=== PATIENT | male | born 1995 | race Caucasian/White ===

== ENCOUNTER 2018-03-04 05:19 | Emergency (ER) | payer SELFPAY ==
[2018-03-04] MEDS ORDERED: LORAZEPAM INJ 2 MG/1 ML VIAL ONE (06:01)
[2018-03-04] MEDS ORDERED: HALOPERIDOL LACTATE INJ 5 MG/1 ML VIAL ONE (06:01)
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
[2018-03-04 06:31] LABS: ABSOLUTE EOSINOPHILS # (AUTO) 0.1 10^3/uL (0.0-0.6); ABSOLUTE LYMPHOCYTES (AUTO) 2.7 10^3/uL (0.5-4.7); ABSOLUTE MONOCYTES (AUTO) 0.8 10^3/uL (0.1-1.4); ABSOLUTE NEUT (AUTO) 5.7 10^3/uL (1.7-8.2); BASOPHILS % (AUTO) 0.4 % (0-2); EOSINOPHILS % (AUTO) 1.1 % (0-6); HEMATOCRIT 48.9 % (37.9-51.0); HEMOGLOBIN 17.2 g/dL (13.5-17.0); LYMPHOCYTES % (AUTO) 28.9 % (13-45); MEAN CORPUSCULAR HEMOGLOBIN 31.3 pg (27.0-33.4); MEAN CORPUSCULAR HGB CONC 35.1 g/dL (32.0-36.0); MEAN CORPUSCULAR VOLUME 89 fl (80-97); MONOCYTES % (AUTO) 8.9 % (3-13); PLATELET COUNT 181 10^3/uL (150-450); RED BLOOD COUNT 5.49 10^6/uL (4.35-5.55); RED CELL DISTRIBUTION WIDTH 13.3 % (11.5-14.0); SEGMENTED NEUTROPHILS % (AUTO) 60.7 % (42-78); TOTAL CELLS COUNTED % (AUTO) 100 %; WHITE BLOOD COUNT 9.3 10^3/uL (4.0-10.5)
[2018-03-04] MEDS ORDERED: LORAZEPAM INJ 2 MG/1 ML VIAL IV ONE (06:33)
[2018-03-04] MEDS ORDERED: HALOPERIDOL LACTATE INJ 5 MG/1 ML VIAL IV ONE (06:33)
[2018-03-04 06:42] LABS: APPEARANCE,URINE CLEAR; BILIRUBIN,URINE NEGATIVE (NEGATIVE); COLOR,URINE STRAW; GLUCOSE, URINE NEGATIVE (NEGATIVE); KETONES,URINE NEGATIVE (NEGATIVE); LEUKOCYTE ESTERASE,URINE NEGATIVE (NEGATIVE); NITRITE,URINE NEGATIVE (NEGATIVE); PROTEIN,URINE NEGATIVE (NEGATIVE); URINE SPECIFIC GRAVITY 1.004; UROBILINOGEN,URINE NEGATIVE mg/dL (<2.0)
[2018-03-04 06:50] LABS: URINE AMPHETAMINES SCREEN NEGATIVE; URINE BARBITURATES SCREEN NEGATIVE; URINE BENZODIAZEPINES SCREEN NEGATIVE; URINE COCAINE SCREEN NEGATIVE; URINE MARIJUANA (THC) SCREEN UNCONFIRMED POSITIVE; URINE METHADONE SCREEN NEGATIVE; URINE PHENCYCLIDINE SCREEN NEGATIVE
[2018-03-04 07:01] LABS: ALANINE AMINOTRANSFERASE 32 U/L (21-72); ALBUMIN 4.7 g/dL (3.5-5.0); ALKALINE PHOSPHATASE 83 U/L (38-126); ANION GAP 19 (5-19); ASPARTATE AMINO TRANSFERASE 26 U/L (17-59); BILIRUBIN,DIRECT 0.3 mg/dL (0.0-0.4); BILIRUBIN,TOTAL 1.6 mg/dL (0.2-1.3); BLOOD UREA NITROGEN 13 mg/dL (7-20); CALCIUM 10.4 mg/dL (8.4-10.2); CARBON DIOXIDE 20 mmol/L (22-30); CHLORIDE 106 mmol/L (98-107); CREATINE KINASE 213 U/L (55-170); GLUCOSE 89 mg/dL (75-110); POTASSIUM 3.7 mmol/L (3.6-5.0); TOTAL PROTEIN 8.2 g/dL (6.3-8.2)
[2018-03-04 07:10] LABS: ALCOHOL < 10 mg/dL (NONE DETECTED); SALICYLATE < 1.0 mg/dL (2.0-20.0)
--- NOTE | 2018-03-04 07:12 | RADIOLOGY REPORT (SQ) ---
EXAM DESCRIPTION: CT HEAD WITHOUT IV CONTRAST COMPLETED DATE/TME: 03/04/2018 06:28 CLINICAL HISTORY: 22 years, Male, Altered mental status COMPARISON: None. TECHNIQUE: Axial CT images of the brain were obtained without contrast. Sagittal and coronal reformats were performed. [facility] [id number] Images stored on PACS. All CT scanners at this facility use dose modulation, iterative reconstruction, and/or weight based dosing when appropriate to reduce radiation dose to as low as reasonably achievable (ALARA). [facility]: Dose Right [facility]: CareDose [facility]: Dose Right [facility]: Teradose 4D [facility]: [employer] LIMITATIONS: None. FINDINGS: There is no acute infarct, hemorrhage, mass, edema, hydrocephalus, or extra-axial fluid collection. The paranasal sinuses and mastoid air cells are clear. There is no acute fracture IMPRESSION: No acute intracranial abnormality TECHNICAL DOCUMENTATION: Quality ID # 436: Final reports with documentation of one or more dose reduction techniques (e.g., Automated exposure control, adjustment of the mA and/or kV according to patient size, use of iterative reconstruction technique) 2010 [email or web address]- All Rights Reserved
[2018-03-04 07:27] LABS: ACETAMINOPHEN < 10 ug/mL (10-30)
--- NOTE | 2018-03-04 09:22 | EKG REPORT ---
SEVERITY:- NORMAL ECG - SINUS RHYTHM : Confirmed by: Darwin Camargo 04-Mar-2018 09:22:11
[2018-03-04] MEDS ORDERED: ACETAMINOPHEN 325 MG TABLET PO ONE (09:41)
[2018-03-04 11:30] VITALS: BP 118/61
== END 2018-03-04 11:47 | disposition home or self-care (01) ==
LOC: ER 05:19
DX: F19.10 Other psychoactive substance abuse, uncomplicated (principal); F25.9 Schizoaffective disorder, unspecified
CPT/HCPCS: 93005; 99285; 96374; 96375; 36415; 80307 ×4; 82550; 85025; 80053; 81001; 70450; 93010; J1630; J2060

== ENCOUNTER 2018-03-05 07:24 | Inpatient (IN) | payer OTHER ==
--- NOTE | 2018-03-05 07:38 | ER Document Report ---
ED Psych Disorder / Suicide - General Chief Complaint: Psych Problem Stated Complaint: ALTERED MENTAL STATUS Time Seen by Provider: 03/05/18 07:36 TRAVEL OUTSIDE OF THE U.S. IN LAST 30 DAYS: No - Related Data Allergies/Adverse Reactions: No Known Allergies Allergy (Verified 03/04/18 08:25) Past Medical History - Social History Family History: None Renal/ Medical History: Denies: Hx Peritoneal Dialysis Physical Exam - Vital signs Vitals: Temp Pulse Resp BP Pulse Ox 98.8 F 105 H 16 138/75 H 99 03/05/18 07:30 03/05/18 07:30 03/05/18 07:30 03/05/18 07:30 03/05/18 07:30 Course - Vital Signs Vital signs: Temp Pulse Resp BP Pulse Ox 98.8 F 105 H 16 138/75 H 99 03/05/18 07:30 03/05/18 07:30 03/05/18 07:30 03/05/18 07:30 03/05/18 07:30
[2018-03-05] MEDS ORDERED: HALOPERIDOL LACTATE INJ 5 MG/1 ML VIAL IV ONE (07:56)
[2018-03-05] MEDS ORDERED: LORAZEPAM INJ 2 MG/1 ML VIAL IV ONE (07:56)
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
[2018-03-05 08:59] LABS: ABSOLUTE EOSINOPHILS # (AUTO) 0.1 10^3/uL (0.0-0.6); ABSOLUTE LYMPHOCYTES (AUTO) 1.8 10^3/uL (0.5-4.7); ABSOLUTE MONOCYTES (AUTO) 0.7 10^3/uL (0.1-1.4); ABSOLUTE NEUT (AUTO) 7.3 10^3/uL (1.7-8.2); BASOPHILS % (AUTO) 0.5 % (0-2); EOSINOPHILS % (AUTO) 0.6 % (0-6); HEMATOCRIT 48.9 % (37.9-51.0); LYMPHOCYTES % (AUTO) 17.9 % (13-45); MEAN CORPUSCULAR HEMOGLOBIN 31.6 pg (27.0-33.4); MEAN CORPUSCULAR HGB CONC 34.9 g/dL (32.0-36.0); MEAN CORPUSCULAR VOLUME 91 fl (80-97); MONOCYTES % (AUTO) 7.2 % (3-13); PLATELET COUNT 197 10^3/uL (150-450); RED CELL DISTRIBUTION WIDTH 13.1 % (11.5-14.0); SEGMENTED NEUTROPHILS % (AUTO) 73.8 % (42-78); TOTAL CELLS COUNTED % (AUTO) 100 %; WHITE BLOOD COUNT 9.9 10^3/uL (4.0-10.5)
[2018-03-05 09:17] LABS: ALANINE AMINOTRANSFERASE 29 U/L (21-72); ALBUMIN 5.1 g/dL (3.5-5.0); ALKALINE PHOSPHATASE 70 U/L (38-126); ANION GAP 13 (5-19); ASPARTATE AMINO TRANSFERASE 28 U/L (17-59); BILIRUBIN,DIRECT 0.3 mg/dL (0.0-0.4); BILIRUBIN,TOTAL 1.5 mg/dL (0.2-1.3); BLOOD UREA NITROGEN 14 mg/dL (7-20); CALCIUM 10.1 mg/dL (8.4-10.2); CARBON DIOXIDE 27 mmol/L (22-30); CHLORIDE 104 mmol/L (98-107); GLUCOSE 94 mg/dL (75-110); POTASSIUM 3.9 mmol/L (3.6-5.0); SODIUM 144.1 mmol/L (137-145); TOTAL PROTEIN 8.3 g/dL (6.3-8.2)
[2018-03-05 09:18] LABS: ACETAMINOPHEN < 10 ug/mL (10-30); ALCOHOL < 10 mg/dL (NONE DETECTED); SALICYLATE < 1.0 mg/dL (2.0-20.0)
[2018-03-05 09:19] LABS: APPEARANCE,URINE CLEAR; BILIRUBIN,URINE NEGATIVE (NEGATIVE); COLOR,URINE STRAW; GLUCOSE, URINE NEGATIVE (NEGATIVE); KETONES,URINE NEGATIVE (NEGATIVE); LEUKOCYTE ESTERASE,URINE NEGATIVE (NEGATIVE); NITRITE,URINE NEGATIVE (NEGATIVE); PROTEIN,URINE NEGATIVE (NEGATIVE); URINE SPECIFIC GRAVITY 1.004; UROBILINOGEN,URINE NEGATIVE mg/dL (<2.0)
[2018-03-05 09:34] LABS: URINE AMPHETAMINES SCREEN NEGATIVE; URINE BARBITURATES SCREEN NEGATIVE; URINE BENZODIAZEPINES SCREEN NEGATIVE; URINE COCAINE SCREEN NEGATIVE; URINE MARIJUANA (THC) SCREEN NEGATIVE; URINE METHADONE SCREEN NEGATIVE; URINE PHENCYCLIDINE SCREEN NEGATIVE
[2018-03-05 09:41] LABS: ERYTHROCYTE SEDIMENTATION RATE 10 mm/hr (0-15)
--- NOTE | 2018-03-05 09:54 | RADIOLOGY REPORT (SQ) ---
EXAM DESCRIPTION: CT HEAD WITHOUT COMPLETED DATE/TIME: 03/05/2018 9:44 am REASON FOR STUDY: AMS COMPARISON: 03/04/2018. TECHNIQUE: Axial images acquired through the brain without intravenous contrast. Images reviewed wi th bone, brain and subdural windows. Additional sagittal and coronal reconstructions were generated. Images stored on PACS. All CT scanners at this facility use dose modulation, iterative reconstruction, and/or weight based d osing when appropriate to reduce radiation dose to as low as reasonably achievable (ALARA). [facility]: Dose Right [facility]: CareDose [facility]: Dose Right [facility]: Teradose 4D [facility]: [employer] RADIATION DOSE: CT Rad equipment meets quality standard of care and radiation dose reduction techniq ues were employed. CTDIvol: 53.2 mGy. DLP: 1017 mGy-cm. mGy. LIMITATIONS: None. FINDINGS: VENTRICLES: Normal size and contour. CEREBRUM: No masses. No hemorrhage. No midline shift. No evidence for acute infarction. Normal gra y/white matter differentiation. No areas of low density in the white matter. CEREBELLUM: No masses. No hemorrhage. No alteration of density. No evidence for acute infarction. EXTRAAXIAL SPACES: No fluid collections. No masses. ORBITS AND GLOBE: No intra- or extraconal masses. Normal contour of globe without masses. CALVARIUM: No fracture. PARANASAL SINUSES: No fluid or mucosal thickening. SOFT TISSUES: No mass or hematoma. OTHER: No other significant finding. IMPRESSION: NORMAL BRAIN CT WITHOUT CONTRAST. EVIDENCE OF ACUTE STROKE: NO. COMMENT: Quality ID # 436: Final reports with documentation of one or more dose reduction techniques (e.g., Automated exposure control, adjustment of the mA and/or kV according to patient size, use of iterative reconstruction technique) TECHNICAL DOCUMENTATION: JOB ID: [id number] [employer]- All Rights Reserved Reading location - IP/workstation name: [email or web address]
[2018-03-05] MEDS ORDERED: BENZTROPINE MESYLATE 1 MG TABLET PO ONE (11:09)
[2018-03-05] MEDS ORDERED: KETAMINE HCL INJ 500 MG/10 ML VIAL IV ONE ×2 (11:16→13:46)
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
[2018-03-05] MEDS ORDERED: VANCOMYCIN HCL INJ 1000 MG VIAL IV ONE (16:08)
[2018-03-05] MEDS ORDERED: CEFTRIAXONE INJ 1000 MG VIAL IV ONE (16:08)
--- NOTE | 2018-03-05 16:17 | ER Document Report ---
Doctor's Note Notes: 03/05/18 16:16 The lab was called and there were gram-positive cocci in pairs in the CSF. This not a lot of polys present. The question is is this skin contaminant versus real bacterial infection with the wait for the culture. The lumbar puncture was done very aseptically. However he was moving. Though a full ChloraPrep was done and the area was cleaned. Patient was given Rocephin and vancomycin of talk to the hospitalist for admission.
[2018-03-05] MEDS ORDERED: VANCOMYCIN HCL 0 MG in DEXTROSE 5%-WATER 250 ML IV NR (16:30)
[2018-03-05] MEDS ORDERED: ACETAMINOPHEN 325 MG TABLET PO ONE (16:51)
[2018-03-05] MEDS ORDERED: ONDANSETRON 4 MG TAB.RAPDIS PO PRN (17:50)
[2018-03-05] MEDS ORDERED: HALOPERIDOL 2 MG TABLET PO PRN (17:57)
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
[2018-03-05] MEDS: CEFEPIME 2 GM/D5W RTU 2 GM/50 ML RTUPB IV SCH (18:39)
[2018-03-05] MEDS: ENOXAPARIN SODIUM INJ 40 MG/0.4 ML DISP.SYRIN SUBCUT SCH (21:10)
[2018-03-05] MEDS: ONDANSETRON HCL INJ/PF 4 MG/2 ML SDV IV PRN (21:23)
--- NOTE | 2018-03-05 21:45 | EKG REPORT ---
SEVERITY:- NORMAL ECG - SINUS RHYTHM : Confirmed by: Darwin Camargo 05-Mar-2018 21:45:25
[2018-03-05] MEDS: VANCOMYCIN HCL 1,000 MG in DEXTROSE 5%-WATER 250 ML IV SCH (23:04)
[2018-03-06] MEDS ORDERED: DEXAMETHASONE SOD PHOS INJ 10 MG/1 ML VIAL IV ONE ×2 (01:00→13:00)
[2018-03-06] MEDS: ONDANSETRON HCL INJ/PF 4 MG/2 ML SDV IV PRN ×4 (03:18→22:03)
[2018-03-06] MEDS: HALOPERIDOL LACTATE INJ 5 MG/1 ML VIAL IV PRN ×3 (03:18→22:03)
[2018-03-06] MEDS: CEFEPIME 2 GM/D5W RTU 2 GM/50 ML RTUPB IV SCH (05:13)
[2018-03-06 06:00] LABS: ABSOLUTE LYMPHOCYTES (AUTO) 0.9 10^3/uL (0.5-4.7); ABSOLUTE MONOCYTES (AUTO) 0.7 10^3/uL (0.1-1.4); BASOPHILS % (AUTO) 0.1 % (0-2); EOSINOPHILS % (AUTO) 0.1 % (0-6); HEMATOCRIT 44.6 % (37.9-51.0); HEMOGLOBIN 15.4 g/dL (13.5-17.0); MEAN CORPUSCULAR HEMOGLOBIN 31.4 pg (27.0-33.4); MEAN CORPUSCULAR HGB CONC 34.6 g/dL (32.0-36.0); MEAN CORPUSCULAR VOLUME 91 fl (80-97); MONOCYTES % (AUTO) 5.8 % (3-13); PLATELET COUNT 176 10^3/uL (150-450); RED BLOOD COUNT 4.91 10^6/uL (4.35-5.55); RED CELL DISTRIBUTION WIDTH 13.1 % (11.5-14.0); TOTAL CELLS COUNTED % (AUTO) 100 %; WHITE BLOOD COUNT 11.6 10^3/uL (4.0-10.5)
[2018-03-06 07:20] LABS: ALANINE AMINOTRANSFERASE 28 U/L (21-72); ALBUMIN 4.2 g/dL (3.5-5.0); ALKALINE PHOSPHATASE 53 U/L (38-126); ANION GAP 14 (5-19); ASPARTATE AMINO TRANSFERASE 17 U/L (17-59); BILIRUBIN,DIRECT 0.2 mg/dL (0.0-0.4); BILIRUBIN,TOTAL 1.7 mg/dL (0.2-1.3); BLOOD UREA NITROGEN 13 mg/dL (7-20); CALCIUM 9.6 mg/dL (8.4-10.2); CARBON DIOXIDE 22 mmol/L (22-30); CHLORIDE 107 mmol/L (98-107); GLUCOSE 94 mg/dL (75-110); PHOSPHORUS 4.4 mg/dL (2.5-4.5); POTASSIUM 4.6 mmol/L (3.6-5.0); SODIUM 143.2 mmol/L (137-145)
[2018-03-06] MEDS: VANCOMYCIN HCL 1,000 MG in DEXTROSE 5%-WATER 250 ML IV SCH ×2 (10:46→21:11)
[2018-03-06] MEDS: ENOXAPARIN SODIUM INJ 40 MG/0.4 ML DISP.SYRIN SUBCUT SCH (10:46)
[2018-03-06] MEDS ORDERED: KETOROLAC TROMETHAMINE INJ/PF 30 MG/1 ML SDV IV ONE (12:30)
[2018-03-06] MEDS ORDERED: CEFTRIAXONE INJ 1000 MG VIAL IV SCH (12:30)
--- NOTE | 2018-03-06 12:54 | RADIOLOGY REPORT (SQ) ---
EXAM DESCRIPTION: CT HEAD WITHOUT COMPLETED DATE/TIME: 03/06/2018 12:43 pm REASON FOR STUDY: meningitis COMPARISON: 03/05/2018 TECHNIQUE: Axial images acquired through the brain without intravenous contrast. Images reviewed wi th bone, brain and subdural windows. Additional sagittal and coronal reconstructions were generated. Images stored on PACS. All CT scanners at this facility use dose modulation, iterative reconstruction, and/or weight based d osing when appropriate to reduce radiation dose to as low as reasonably achievable (ALARA). [facility]: Dose Right [facility]: CareDose [facility]: Dose Right [facility]: Teradose 4D [facility]: Smart Lumate RADIATION DOSE: CT Rad equipment meets quality standard of care and radiation dose reduction techniq ues were employed. CTDIvol: 48.6 mGy. DLP: 953 mGy-cm. mGy. LIMITATIONS: None. FINDINGS: VENTRICLES: Normal size and contour. CEREBRUM: No masses. No hemorrhage. No midline shift. No evidence for acute infarction. Normal gra y/white matter differentiation. No areas of low density in the white matter. CEREBELLUM: No masses. No hemorrhage. No alteration of density. No evidence for acute infarction. EXTRAAXIAL SPACES: No fluid collections. No masses. ORBITS AND GLOBE: No intra- or extraconal masses. Normal contour of globe without masses. CALVARIUM: No fracture. PARANASAL SINUSES: No fluid or mucosal thickening. SOFT TISSUES: No mass or hematoma. OTHER: No other significant finding. IMPRESSION: NORMAL BRAIN CT WITHOUT CONTRAST. EVIDENCE OF ACUTE STROKE: NO. COMMENT: Quality ID # [id number]: Final reports with documentation of one or more dose reduction techniques (e.g., Automated exposure control, adjustment of the mA and/or kV according to patient size, use of iterative reconstruction technique) TECHNICAL DOCUMENTATION: JOB ID: [id number] [employer]- All Rights Reserved Reading location - IP/workstation name: [email or web address]
[2018-03-06] MEDS: CEFTRIAXONE 2 GM/D5W RTU 2 GM/50 ML RTUPB IV SCH (14:26)
[2018-03-06] MEDS: NORMAL SALINE 1000 ML 1,000 ML IV PRN (14:27)
[2018-03-06] MEDS: DEXAMETHASONE SOD PHOS INJ 10 MG/1 ML VIAL IV SCH ×2 (17:39→23:23)
--- NOTE | 2018-03-06 19:04 | PDOC PROGRESS REPORT ---
Subjective Progress Note for:: 03/06/18 Subjective:: 22 years old white male with history of drug abuse who presented due to alteration in mental status and CSF was positive for gram-positive cocci in pairs patient is lethargic and confused and complained of severe headache and vomited once when I examined him in the room. Reason For Visit: POSITIVE CSF CULTURE,ENCEPHALOPATHY Physical Exam Vital Signs: Temp Pulse Resp BP Pulse Ox 98.0 F 55 L 18 110/61 100 03/06/18 16:00 03/06/18 18:40 03/06/18 16:00 03/06/18 16:00 03/06/18 16:00 Intake & Output 03/05/18 03/06/18 03/07/18 06:59 06:59 06:59 Intake Total 100 50 Balance 100 50 Exam: Patient is lethargic and confused Anxious and complains of headache Head atraumatic normocephalic Pupils are equal reactive Regular rate and rhythm Lungs clear no distress Abdomen nontender nondistended No appreciable meningismus Results Laboratory Results: 03/06/18 05:23 03/06/18 06:50 03/06/18 03/06/18 03/06/18 05:23 05:23 06:50 WBC 11.6 H RBC 4.91 Hgb 15.4 Hct 44.6 MCV 91 MCH 31.4 MCHC 34.6 RDW 13.1 Plt Count 176 Seg Neutrophils % 86.0 H Lymphocytes % 8.0 L Monocytes % 5.8 Eosinophils % 0.1 Basophils % 0.1 Absolute Neutrophils 10.0 H Absolute Lymphocytes 0.9 Absolute Monocytes 0.7 Absolute Eosinophils 0.0 Absolute Basophils 0.0 Sodium Cancelled 143.2 Potassium Cancelled 4.6 Chloride Cancelled 107 Carbon Dioxide Cancelled 22 Anion Gap Cancelled 14 BUN Cancelled 13 Creatinine Cancelled 0.72 Est GFR ( Amer) Cancelled > 60 Est GFR (Non-Af Amer) Cancelled > 60 Glucose Cancelled 94 Calcium Cancelled 9.6 Phosphorus Cancelled 4.4 Magnesium Cancelled 2.1 Total Bilirubin Cancelled 1.7 H AST Cancelled 17 ALT Cancelled 28 Alkaline Phosphatase Cancelled 53 Total Protein Cancelled 7.0 Albumin Cancelled 4.2 Impressions: Head CT 03/06/18 12:08 IMPRESSION: NORMAL BRAIN CT WITHOUT CONTRAST. EVIDENCE OF ACUTE STROKE: NO. Assessment & Plan - Diagnosis (1) Acute bacterial meningitis Is this a current diagnosis for this admission?: Yes Plan: I called [facility] and discussed the case with hospitalist, studio sales associate and the neurologist for possible transfer to higher level of care as there was concern about this patient long-term prognosis The neurologist recommended observation for today and continuing current management that includes IV vancomycin, IV ceftriaxone and adding IV ampicillin as well as continuing IV dexamethasone and IV fluids The patient does not turn around by tomorrow they will accept him for transfer (2) Acute encephalopathy Is this a current diagnosis for this admission?: Yes Plan: Due to meningitis (3) Polysubstance abuse Is this a current diagnosis for this admission?: Yes (4) Positive culture finding Is this a current diagnosis for this admission?: Yes
[2018-03-06] MEDS ORDERED: AMPICILLIN SOD INJ 2 GM VIAL IV SCH (21:00)
[2018-03-06] MEDS: AMPICILLIN SODIUM 2 GM in NORMAL SALINE 100 ML IV SCH ×2 (21:04→23:24)
[2018-03-06] MEDS: ACETAMINOPHEN 325 MG TABLET PO PRN (21:10)
[2018-03-07] MEDS: CEFTRIAXONE 2 GM/D5W RTU 2 GM/50 ML RTUPB IV SCH ×2 (02:09→14:21)
[2018-03-07] MEDS: AMPICILLIN SODIUM 2 GM in NORMAL SALINE 100 ML IV SCH ×5 (03:12→22:52)
[2018-03-07 05:07] LABS: HEMATOCRIT 42.3 % (37.9-51.0); HEMOGLOBIN 14.7 g/dL (13.5-17.0); MEAN CORPUSCULAR HEMOGLOBIN 31.1 pg (27.0-33.4); MEAN CORPUSCULAR HGB CONC 34.8 g/dL (32.0-36.0); MEAN CORPUSCULAR VOLUME 89 fl (80-97); PLATELET COUNT 160 10^3/uL (150-450); RED BLOOD COUNT 4.73 10^6/uL (4.35-5.55); WHITE BLOOD COUNT 12.1 10^3/uL (4.0-10.5)
[2018-03-07 05:28] LABS: ALANINE AMINOTRANSFERASE 27 U/L (21-72); ALBUMIN 4.3 g/dL (3.5-5.0); ALKALINE PHOSPHATASE 52 U/L (38-126); ANION GAP 15 (5-19); ASPARTATE AMINO TRANSFERASE 15 U/L (17-59); BILIRUBIN,DIRECT 0.4 mg/dL (0.0-0.4); BILIRUBIN,TOTAL 1.1 mg/dL (0.2-1.3); BLOOD UREA NITROGEN 14 mg/dL (7-20); CALCIUM 9.5 mg/dL (8.4-10.2); CARBON DIOXIDE 22 mmol/L (22-30); CHLORIDE 105 mmol/L (98-107); GLUCOSE 126 mg/dL (75-110); PHOSPHORUS 3.8 mg/dL (2.5-4.5); POTASSIUM 4.4 mmol/L (3.6-5.0); SODIUM 142.3 mmol/L (137-145); TOTAL PROTEIN 6.9 g/dL (6.3-8.2)
[2018-03-07 05:32] LABS: ABSOLUTE LYMPHOCYTES# (MANUAL) 0.5 10^3/uL (0.5-4.7); ABSOLUTE MONOCYTES # (MANUAL) 0.4 10^3/uL (0.1-1.4); ABSOLUTE NEUTROPHILS# (MANUAL) 11.3 10^3/uL (1.7-8.2); BASOPHILS % (MANUAL) 0 % (0-2); EOSINOPHILS % (MANUAL) 0 % (0-6); LYMPHOCYTES % (MANUAL) 4 % (13-45); MONOCYTES % (MANUAL) 3 % (3-13); SEGMENTED NEUTROPHILS % (MAN) 93 % (42-78); TOTAL CELLS COUNTED 100
[2018-03-07 05:33] LABS: PLATELET COMMENT ADEQUATE; RBC MORPHOLOGY COMMENT NORMO-CYTIC/CHROMIC
[2018-03-07] MEDS: NORMAL SALINE 1000 ML 1,000 ML IV PRN ×2 (05:50→18:16)
[2018-03-07] MEDS: DEXAMETHASONE SOD PHOS INJ 10 MG/1 ML VIAL IV SCH ×3 (05:57→18:15)
[2018-03-07] MEDS: ENOXAPARIN SODIUM INJ 40 MG/0.4 ML DISP.SYRIN SUBCUT SCH (09:11)
[2018-03-07] MEDS: ONDANSETRON HCL INJ/PF 4 MG/2 ML SDV IV PRN ×2 (09:56→15:35)
[2018-03-07] MEDS: ACETAMINOPHEN 325 MG TABLET PO PRN ×2 (10:01→20:19)
[2018-03-07] MEDS: VANCOMYCIN HCL 1,000 MG in DEXTROSE 5%-WATER 250 ML IV SCH (10:03)
[2018-03-07 10:40] LABS: VANCOMYCIN,TROUGH 5.3 ug/mL (5.0-20.0)
[2018-03-07] MEDS: VANCOMYCIN HCL 750 MG in DEXTROSE 5%-WATER 250 ML IV SCH ×2 (12:22→18:14)
[2018-03-07] MEDS: KETOROLAC TROMETHAMINE INJ/PF 30 MG/1 ML SDV IV PRN ×2 (13:18→22:51)
[2018-03-07] MEDS: HALOPERIDOL LACTATE INJ 5 MG/1 ML VIAL IV PRN (14:44)
[2018-03-07] MEDS: ONDANSETRON 4 MG TAB.RAPDIS PO PRN ×2 (14:45→20:39)
--- NOTE | 2018-03-07 15:22 | PDOC PROGRESS REPORT ---
Subjective Progress Note for:: 03/07/18 Subjective:: 22 years old white male with history of drug abuse who presented due to alteration in mental status and CSF was positive for gram-positive cocci in pairs. He is better today after we started IV fluids and dexamethasone. Reason For Visit: POSITIVE CSF CULTURE,ENCEPHALOPATHY Physical Exam Vital Signs: Temp Pulse Resp BP Pulse Ox 98.5 F 88 16 112/57 L 100 03/07/18 11:15 03/07/18 12:00 03/07/18 12:00 03/07/18 12:00 03/07/18 12:00 Intake & Output 03/06/18 03/07/18 03/08/18 06:59 06:59 06:59 Intake Total 100 1900 568 Balance 100 1900 568 Weight 116 lb 9.992 oz General appearance: PRESENT: no acute distress Head exam: PRESENT: atraumatic Eye exam: ABSENT: conjunctival injection Ear exam: ABSENT: bleeding, drainage Throat exam: PRESENT: post pharyngeal erythema Neck exam: ABSENT: JVD, meningismus, tenderness, thyromegaly Respiratory exam: PRESENT: clear to auscultation sanjeev. ABSENT: crackles, rales, rhonchi Cardiovascular exam: PRESENT: RRR. ABSENT: diastolic murmur, systolic murmur Pulses: PRESENT: normal dorsalis pedis pul GI/Abdominal exam: PRESENT: normal bowel sounds, soft. ABSENT: distended, guarding, mass, organolmegaly, rebound, tenderness Musculoskeletal exam: ABSENT: deformity, tenderness Neurological exam: PRESENT: oriented to person, oriented to place, oriented to time, oriented to situation, CN II-XII grossly intact Psychiatric exam: PRESENT: anxious Results Laboratory Results: 03/07/18 04:45 03/07/18 04:45 03/07/18 03/07/18 04:45 04:45 WBC 12.1 H RBC 4.73 Hgb 14.7 Hct 42.3 MCV 89 MCH 31.1 MCHC 34.8 RDW 13.0 Plt Count 160 Seg Neutrophils % Not Reportable Lymphocytes % Not Reportable Monocytes % Not Reportable Eosinophils % Not Reportable Basophils % Not Reportable Absolute Neutrophils Not Reportable Absolute Lymphocytes Not Reportable Absolute Monocytes Not Reportable Absolute Eosinophils Not Reportable Absolute Basophils Not Reportable Sodium 142.3 Potassium 4.4 Chloride 105 Carbon Dioxide 22 Anion Gap 15 BUN 14 Creatinine 0.66 Est GFR ( Amer) > 60 Est GFR (Non-Af Amer) > 60 Glucose 126 H Calcium 9.5 Phosphorus 3.8 Magnesium 1.9 Total Bilirubin 1.1 AST 15 L ALT 27 Alkaline Phosphatase 52 Total Protein 6.9 Albumin 4.3 Impressions: Head CT 03/06/18 12:08 IMPRESSION: NORMAL BRAIN CT WITHOUT CONTRAST. EVIDENCE OF ACUTE STROKE: NO. Assessment & Plan - Diagnosis (1) Acute bacterial meningitis Is this a current diagnosis for this admission?: Yes Plan: Yesterday: I called [facility] and discussed the case with hospitalist, baggage porter and the neurologist for possible transfer to higher level of care as there was concern about this patient long-term prognosis The neurologist recommended observation for the day and continuing current management that includes IV vancomycin, IV ceftriaxone and adding IV ampicillin as well as continuing IV dexamethasone and IV fluids The patient does not turn around by tomorrow they will accept him for transfer Today I see some improvement in the patient's condition and we will hold transfer for now and continue current management (2) Acute encephalopathy Is this a current diagnosis for this admission?: Yes Plan: Due to meningitis Improvement (3) Polysubstance abuse Is this a current diagnosis for this admission?: Yes (4) Positive culture finding Is this a current diagnosis for this admission?: Yes
[2018-03-08] MEDS: DEXAMETHASONE SOD PHOS INJ 10 MG/1 ML VIAL IV SCH ×4 (01:00→17:21)
[2018-03-08] MEDS: VANCOMYCIN HCL 750 MG in DEXTROSE 5%-WATER 250 ML IV SCH ×4 (01:01→17:21)
[2018-03-08] MEDS: ACETAMINOPHEN 325 MG TABLET PO PRN ×2 (01:02→05:58)
[2018-03-08] MEDS: ONDANSETRON HCL INJ/PF 4 MG/2 ML SDV IV PRN ×3 (01:15→22:46)
[2018-03-08] MEDS: AMPICILLIN SODIUM 2 GM in NORMAL SALINE 100 ML IV SCH ×6 (02:28→21:23)
[2018-03-08] MEDS: CEFTRIAXONE 2 GM/D5W RTU 2 GM/50 ML RTUPB IV SCH ×2 (04:33→14:20)
[2018-03-08 06:09] LABS: HEMATOCRIT 41.9 % (37.9-51.0); HEMOGLOBIN 14.7 g/dL (13.5-17.0); MEAN CORPUSCULAR HEMOGLOBIN 31.2 pg (27.0-33.4); MEAN CORPUSCULAR HGB CONC 35.1 g/dL (32.0-36.0); MEAN CORPUSCULAR VOLUME 89 fl (80-97); PLATELET COUNT 155 10^3/uL (150-450); RED BLOOD COUNT 4.72 10^6/uL (4.35-5.55); RED CELL DISTRIBUTION WIDTH 13.1 % (11.5-14.0)
[2018-03-08 06:17] LABS: ALANINE AMINOTRANSFERASE 24 U/L (21-72); ALKALINE PHOSPHATASE 53 U/L (38-126); ANION GAP 13 (5-19); ASPARTATE AMINO TRANSFERASE 16 U/L (17-59); BILIRUBIN,DIRECT 0.3 mg/dL (0.0-0.4); BILIRUBIN,TOTAL 0.8 mg/dL (0.2-1.3); BLOOD UREA NITROGEN 11 mg/dL (7-20); CALCIUM 9.4 mg/dL (8.4-10.2); CARBON DIOXIDE 26 mmol/L (22-30); CHLORIDE 104 mmol/L (98-107); GLUCOSE 133 mg/dL (75-110); PHOSPHORUS 3.3 mg/dL (2.5-4.5); SODIUM 143.3 mmol/L (137-145); TOTAL PROTEIN 6.7 g/dL (6.3-8.2)
[2018-03-08 06:24] LABS: VANCOMYCIN,TROUGH 14.2 ug/mL (5.0-20.0)
[2018-03-08 07:40] LABS: ABSOLUTE LYMPHOCYTES# (MANUAL) 0.5 10^3/uL (0.5-4.7); ABSOLUTE MONOCYTES # (MANUAL) 0.8 10^3/uL (0.1-1.4); ABSOLUTE NEUTROPHILS# (MANUAL) 13.8 10^3/uL (1.7-8.2); BAND NEUTROPHILS % (MANUAL) 1 % (3-5); BASOPHILS % (MANUAL) 0 % (0-2); EOSINOPHILS % (MANUAL) 0 % (0-6); LYMPHOCYTES % (MANUAL) 3 % (13-45); MONOCYTES % (MANUAL) 5 % (3-13); SEGMENTED NEUTROPHILS % (MAN) 91 % (42-78); TOTAL CELLS COUNTED 100
[2018-03-08 07:42] LABS: TOXIC VACUOLATION PRESENT
[2018-03-08 07:43] LABS: PLATELET COMMENT ADEQUATE
[2018-03-08] MEDS: ENOXAPARIN SODIUM INJ 40 MG/0.4 ML DISP.SYRIN SUBCUT SCH (11:04)
[2018-03-08] MEDS: KETOROLAC TROMETHAMINE INJ/PF 30 MG/1 ML SDV IV PRN (12:06)
[2018-03-08] MEDS: HALOPERIDOL LACTATE INJ 5 MG/1 ML VIAL IV PRN (12:07)
[2018-03-08] MEDS ORDERED: CHLORPROMAZINE HCL INJ 25 MG/1 ML AMPULE IV PRN (13:09)
--- NOTE | 2018-03-08 13:30 | PDOC PROGRESS REPORT ---
Subjective Progress Note for:: 03/08/18 Subjective:: 22 years old white male with history of drug abuse who presented due to alteration in mental status and CSF was positive for gram-positive cocci in pairs. c/o headache oriented apparently was using LSD, marijuana, meth, heavy alcohol x 8 years!! CSF cx so far negative after 3 days Reason For Visit: POSITIVE CSF CULTURE,ENCEPHALOPATHY Physical Exam Vital Signs: Temp Pulse Resp BP Pulse Ox 97.3 F 72 12 121/68 94 03/08/18 07:28 03/08/18 07:28 03/08/18 07:28 03/08/18 07:28 03/08/18 07:28 Intake & Output 03/07/18 03/08/18 03/09/18 06:59 06:59 06:59 Intake Total 1900 2636 250 Balance 1900 2636 250 Weight 116 lb 9.992 oz 149 lb 4.047 oz General appearance: PRESENT: no acute distress Eye exam: PRESENT: PERRLA. ABSENT: conjunctival injection, periorbital swelling , scleral icterus Ear exam: ABSENT: bleeding, drainage Mouth exam: PRESENT: tongue midline. ABSENT: neck supple Throat exam: ABSENT: post pharyngeal erythema Neck exam: ABSENT: JVD, meningismus, tenderness, thyromegaly Respiratory exam: PRESENT: clear to auscultation sanjeev. ABSENT: accessory muscle use Cardiovascular exam: PRESENT: RRR. ABSENT: diastolic murmur, rubs, systolic murmur Pulses: PRESENT: normal dorsalis pedis pul Vascular exam: PRESENT: normal capillary refill GI/Abdominal exam: PRESENT: normal bowel sounds, soft. ABSENT: distended, guarding, mass, organolmegaly, rebound, tenderness Neurological exam: PRESENT: alert, awake, oriented to person, oriented to place , oriented to time, oriented to situation. ABSENT: aphasic Results Laboratory Results: 03/08/18 05:39 03/08/18 05:39 03/08/18 03/08/18 05:39 05:39 WBC 15.0 H RBC 4.72 Hgb 14.7 Hct 41.9 MCV 89 MCH 31.2 MCHC 35.1 RDW 13.1 Plt Count 155 Seg Neutrophils % Not Reportable Lymphocytes % Not Reportable Monocytes % Not Reportable Eosinophils % Not Reportable Basophils % Not Reportable Absolute Neutrophils Not Reportable Absolute Lymphocytes Not Reportable Absolute Monocytes Not Reportable Absolute Eosinophils Not Reportable Absolute Basophils Not Reportable Sodium 143.3 Potassium 4.0 Chloride 104 Carbon Dioxide 26 Anion Gap 13 BUN 11 Creatinine 0.73 Est GFR ( Amer) > 60 Est GFR (Non-Af Amer) > 60 Glucose 133 H Calcium 9.4 Phosphorus 3.3 Magnesium 2.2 Total Bilirubin 0.8 AST 16 L ALT 24 Alkaline Phosphatase 53 Total Protein 6.7 Albumin 4.0 Impressions: Head CT 03/06/18 12:08 IMPRESSION: NORMAL BRAIN CT WITHOUT CONTRAST. EVIDENCE OF ACUTE STROKE: NO. Assessment & Plan - Diagnosis (1) Acute bacterial meningitis Is this a current diagnosis for this admission?: Yes Plan: Patient is clinically improving Is hemodynamically stable He is oriented but still complains of headaches Extensive history of heavy substance and alcohol abuse His CSF cultures are negative for 3 days now Continue empiric antibiotics for now and steroids, we will may stop all of them tomorrow Start thiamine and folic acid supplements and scheduled Ativan High risk of alcohol withdrawal symptoms He may be withdrawing from substance abuse (2) Acute encephalopathy Is this a current diagnosis for this admission?: Yes Plan: Improvement (3) Polysubstance abuse Is this a current diagnosis for this admission?: Yes (4) Positive culture finding Is this a current diagnosis for this admission?: Yes
[2018-03-08] MEDS: LORAZEPAM 1 MG TABLET PO SCH ×2 (14:21→14:24)
[2018-03-08] MEDS: LORAZEPAM INJ 2 MG/1 ML VIAL IV SCH (15:15)
[2018-03-08] MEDS: MORPHINE SULFATE 10 MG/ML INJ IV PRN ×2 (15:15→22:46)
[2018-03-08] MEDS: THIAMINE HCL 100 MG, FOLIC ACID 1 MG in NORMAL SALINE 250 ML IV SCH (19:01)
[2018-03-08] MEDS: NORMAL SALINE 1000 ML 1,000 ML IV PRN (19:02)
[2018-03-09] MEDS: LORAZEPAM INJ 2 MG/1 ML VIAL IV SCH ×2 (00:53→07:27)
[2018-03-09] MEDS: VANCOMYCIN HCL 750 MG in DEXTROSE 5%-WATER 250 ML IV SCH ×5 (00:56→23:55)
[2018-03-09] MEDS: AMPICILLIN SODIUM 2 GM in NORMAL SALINE 100 ML IV SCH ×3 (00:56→10:22)
[2018-03-09] MEDS: DEXAMETHASONE SOD PHOS INJ 10 MG/1 ML VIAL IV SCH ×2 (01:02→05:20)
[2018-03-09] MEDS: CEFTRIAXONE 2 GM/D5W RTU 2 GM/50 ML RTUPB IV SCH ×2 (01:11→14:44)
[2018-03-09 06:03] LABS: ABSOLUTE LYMPHOCYTES (AUTO) 0.9 10^3/uL (0.5-4.7); ABSOLUTE NEUT (AUTO) 10.9 10^3/uL (1.7-8.2); BASOPHILS % (AUTO) 0.1 % (0-2); EOSINOPHILS % (AUTO) 0.2 % (0-6); HEMATOCRIT 40.7 % (37.9-51.0); HEMOGLOBIN 14.3 g/dL (13.5-17.0); LYMPHOCYTES % (AUTO) 7.3 % (13-45); MEAN CORPUSCULAR HEMOGLOBIN 31.3 pg (27.0-33.4); MEAN CORPUSCULAR VOLUME 89 fl (80-97); MONOCYTES % (AUTO) 7.6 % (3-13); PLATELET COUNT 154 10^3/uL (150-450); RED BLOOD COUNT 4.56 10^6/uL (4.35-5.55); SEGMENTED NEUTROPHILS % (AUTO) 84.8 % (42-78); TOTAL CELLS COUNTED % (AUTO) 100 %; WHITE BLOOD COUNT 12.9 10^3/uL (4.0-10.5)
[2018-03-09 06:31] LABS: ALANINE AMINOTRANSFERASE 27 U/L (21-72); ALBUMIN 3.5 g/dL (3.5-5.0); ALKALINE PHOSPHATASE 39 U/L (38-126); ANION GAP 12 (5-19); ASPARTATE AMINO TRANSFERASE 11 U/L (17-59); BILIRUBIN,DIRECT 0.2 mg/dL (0.0-0.4); BILIRUBIN,TOTAL 0.5 mg/dL (0.2-1.3); BLOOD UREA NITROGEN 10 mg/dL (7-20); CALCIUM 9.2 mg/dL (8.4-10.2); CARBON DIOXIDE 26 mmol/L (22-30); CHLORIDE 103 mmol/L (98-107); GLUCOSE 129 mg/dL (75-110); POTASSIUM 3.7 mmol/L (3.6-5.0); TOTAL PROTEIN 6.2 g/dL (6.3-8.2)
[2018-03-09] MEDS: ENOXAPARIN SODIUM INJ 40 MG/0.4 ML DISP.SYRIN SUBCUT SCH (10:50)
[2018-03-09] MEDS: KETOROLAC TROMETHAMINE INJ/PF 30 MG/1 ML SDV IV PRN (10:51)
--- NOTE | 2018-03-09 11:54 | PDOC PROGRESS REPORT ---
Subjective Progress Note for:: 03/09/18 Subjective:: 22 years old white male with history of drug abuse who presented due to alteration in mental status and CSF was positive for gram-positive cocci in pairs. still c/o headache oriented and much more awake CSF cultures are still negative Reason For Visit: POSITIVE CSF CULTURE,ENCEPHALOPATHY Physical Exam Vital Signs: Temp Pulse Resp BP Pulse Ox 97.7 F 42 L 16 122/70 100 03/09/18 07:51 03/09/18 07:51 03/09/18 07:51 03/09/18 07:51 03/09/18 07:51 Intake & Output 03/08/18 03/09/18 03/10/18 06:59 06:59 06:59 Intake Total 3686 2068 Balance 3686 2068 Weight 149 lb 4.047 oz 138 lb 10.732 oz General appearance: PRESENT: cooperative. ABSENT: no acute distress Head exam: ABSENT: atraumatic, normocephalic Eye exam: PRESENT: EOMI, PERRLA. ABSENT: conjunctival injection, nystagmus, periorbital swelling Ear exam: ABSENT: bleeding, drainage Neck exam: ABSENT: JVD, meningismus, tenderness, thyromegaly Respiratory exam: PRESENT: clear to auscultation sanjeev. ABSENT: rales, rhonchi, wheezes Pulses: PRESENT: normal dorsalis pedis pul Vascular exam: PRESENT: normal capillary refill GI/Abdominal exam: PRESENT: normal bowel sounds, soft. ABSENT: distended, guarding, mass, organolmegaly, rebound, tenderness Extremities exam: PRESENT: full ROM. ABSENT: calf tenderness, clubbing, pedal edema Neurological exam: PRESENT: alert, awake, oriented to person, oriented to place , oriented to time, oriented to situation, CN II-XII grossly intact. ABSENT: motor sensory deficit Psychiatric exam: PRESENT: anxious Results Laboratory Results: 03/09/18 05:53 03/09/18 05:53 03/09/18 03/09/18 05:53 05:53 WBC 12.9 H RBC 4.56 Hgb 14.3 Hct 40.7 MCV 89 MCH 31.3 MCHC 35.0 RDW 13.0 Plt Count 154 Seg Neutrophils % 84.8 H Lymphocytes % 7.3 L Monocytes % 7.6 Eosinophils % 0.2 Basophils % 0.1 Absolute Neutrophils 10.9 H Absolute Lymphocytes 0.9 Absolute Monocytes 1.0 Absolute Eosinophils 0.0 Absolute Basophils 0.0 Sodium 141.0 Potassium 3.7 Chloride 103 Carbon Dioxide 26 Anion Gap 12 BUN 10 Creatinine 0.72 Est GFR ( Amer) > 60 Est GFR (Non-Af Amer) > 60 Glucose 129 H Calcium 9.2 Total Bilirubin 0.5 AST 11 L ALT 27 Alkaline Phosphatase 39 Total Protein 6.2 L Albumin 3.5 Impressions: Head CT 03/06/18 12:08 IMPRESSION: NORMAL BRAIN CT WITHOUT CONTRAST. EVIDENCE OF ACUTE STROKE: NO. Assessment & Plan - Diagnosis (1) Acute bacterial meningitis Is this a current diagnosis for this admission?: Yes Plan: Patient is clinically improving Is hemodynamically stable He is oriented but still complains of headaches Extensive history of heavy substance and alcohol abuse His CSF cultures are negative up to date Continue ceftriaxone and vancomycin. Stop dexamethasone and ampicillin Continue thiamine and folic acid supplements and scheduled Ativan High risk of alcohol withdrawal symptoms He may be withdrawing from substance abuse We contacted ID service for consult waiting for callback (2) Acute encephalopathy Is this a current diagnosis for this admission?: Yes Plan: Resolved (3) Polysubstance abuse Is this a current diagnosis for this admission?: Yes (4) Positive culture finding Is this a current diagnosis for this admission?: Yes
[2018-03-09] MEDS: ONDANSETRON HCL INJ/PF 4 MG/2 ML SDV IV PRN (12:30)
[2018-03-09] MEDS: NORMAL SALINE 1000 ML 1,000 ML IV PRN (12:33)
[2018-03-09] MEDS: LORAZEPAM INJ 2 MG/1 ML VIAL IV PRN (12:34)
[2018-03-09] MEDS: ONDANSETRON 4 MG TAB.RAPDIS PO PRN (18:29)
[2018-03-09] MEDS: OXYCODONE HCL IR 5 MG TABLET PO PRN (19:58)
[2018-03-09] MEDS: THIAMINE HCL 100 MG, FOLIC ACID 1 MG in NORMAL SALINE 250 ML IV SCH (20:55)
[2018-03-10] MEDS: OXYCODONE HCL IR 5 MG TABLET PO PRN ×2 (00:49→10:12)
[2018-03-10] MEDS: LORAZEPAM INJ 2 MG/1 ML VIAL IV PRN ×3 (00:57→21:58)
[2018-03-10] MEDS: CEFTRIAXONE 2 GM/D5W RTU 2 GM/50 ML RTUPB IV SCH ×2 (01:02→14:59)
[2018-03-10] MEDS: VANCOMYCIN HCL 750 MG in DEXTROSE 5%-WATER 250 ML IV SCH ×3 (06:58→17:46)
[2018-03-10] MEDS: ONDANSETRON HCL INJ/PF 4 MG/2 ML SDV IV PRN (07:05)
[2018-03-10 09:56] LABS: ABSOLUTE LYMPHOCYTES (AUTO) 1.3 10^3/uL (0.5-4.7); ABSOLUTE NEUT (AUTO) 6.7 10^3/uL (1.7-8.2); EOSINOPHILS % (AUTO) 0.4 % (0-6); HEMATOCRIT 41.9 % (37.9-51.0); HEMOGLOBIN 14.7 g/dL (13.5-17.0); LYMPHOCYTES % (AUTO) 14.3 % (13-45); MEAN CORPUSCULAR HEMOGLOBIN 31.5 pg (27.0-33.4); MEAN CORPUSCULAR HGB CONC 35.1 g/dL (32.0-36.0); MEAN CORPUSCULAR VOLUME 90 fl (80-97); MONOCYTES % (AUTO) 11.1 % (3-13); PLATELET COUNT 156 10^3/uL (150-450); RED BLOOD COUNT 4.68 10^6/uL (4.35-5.55); RED CELL DISTRIBUTION WIDTH 13.1 % (11.5-14.0); SEGMENTED NEUTROPHILS % (AUTO) 74.2 % (42-78); TOTAL CELLS COUNTED % (AUTO) 100 %; WHITE BLOOD COUNT 9.1 10^3/uL (4.0-10.5)
[2018-03-10 10:27] LABS: ANION GAP 11 (5-19); BLOOD UREA NITROGEN 11 mg/dL (7-20); CALCIUM 9.2 mg/dL (8.4-10.2); CARBON DIOXIDE 30 mmol/L (22-30); CHLORIDE 101 mmol/L (98-107); GLUCOSE 92 mg/dL (75-110); POTASSIUM 3.2 mmol/L (3.6-5.0); SODIUM 141.5 mmol/L (137-145)
[2018-03-10] MEDS: ENOXAPARIN SODIUM INJ 40 MG/0.4 ML DISP.SYRIN SUBCUT SCH (11:30)
--- NOTE | 2018-03-10 11:58 | RADIOLOGY REPORT (SQ) ---
EXAM DESCRIPTION: CHEST 2 VIEWS COMPLETED DATE/TIME: 03/10/2018 11:46 am REASON FOR STUDY: coughing COMPARISON: None. EXAM PARAMETERS: NUMBER OF VIEWS: two views TECHNIQUE: Digital Frontal and Lateral radiographic views of the chest acquired. RADIATION DOSE: NA LIMITATIONS: none FINDINGS: LUNGS AND PLEURA: No opacities, masses or pneumothorax. No pleural effusion. MEDIASTINUM AND HILAR STRUCTURES: No masses or contour abnormalities. HEART AND VASCULAR STRUCTURES: Heart normal size. No evidence for failure. BONES: No acute findings. HARDWARE: None in the chest. OTHER: No other significant finding. IMPRESSION: NO ACUTE RADIOGRAPHIC FINDING IN THE CHEST. TECHNICAL DOCUMENTATION: JOB ID: [id number] [employer]- All Rights Reserved Reading location - IP/workstation name: [email or web address]
--- NOTE | 2018-03-10 13:32 | PDOC PROGRESS REPORT ---
Subjective Progress Note for:: 03/10/18 Subjective:: 22 years old white male with history of drug abuse who presented due to alteration in mental status and CSF was positive for gram-positive cocci in pairs. still c/o headache mantal status normal CSF cultures are still negative Reason For Visit: POSITIVE CSF CULTURE,ENCEPHALOPATHY Physical Exam Vital Signs: Temp Pulse Resp BP Pulse Ox 98.1 F 43 L 16 122/61 100 03/10/18 11:32 03/10/18 11:32 03/10/18 11:32 03/10/18 11:32 03/10/18 11:32 Intake & Output 03/09/18 03/10/18 03/11/18 06:59 06:59 06:59 Intake Total 3619 1796.2 472 Balance 3619 1796.2 472 Weight 138 lb 10.732 oz 140 lb 10.479 oz General appearance: PRESENT: cooperative. ABSENT: no acute distress Head exam: PRESENT: atraumatic, normocephalic Cardiovascular exam: PRESENT: RRR. ABSENT: diastolic murmur, rubs, systolic murmur Pulses: PRESENT: normal dorsalis pedis pul GI/Abdominal exam: PRESENT: normal bowel sounds, soft. ABSENT: distended, guarding, mass, organolmegaly, rebound, tenderness Neurological exam: PRESENT: alert, awake, oriented to person, oriented to place , oriented to time, oriented to situation, CN II-XII grossly intact. ABSENT: motor sensory deficit Results Laboratory Results: 03/10/18 09:30 03/10/18 09:30 03/10/18 03/10/18 09:30 09:30 WBC 9.1 RBC 4.68 Hgb 14.7 Hct 41.9 MCV 90 MCH 31.5 MCHC 35.1 RDW 13.1 Plt Count 156 Seg Neutrophils % 74.2 Lymphocytes % 14.3 Monocytes % 11.1 Eosinophils % 0.4 Basophils % 0.0 Absolute Neutrophils 6.7 Absolute Lymphocytes 1.3 Absolute Monocytes 1.0 Absolute Eosinophils 0.0 Absolute Basophils 0.0 Sodium 141.5 Potassium 3.2 L Chloride 101 Carbon Dioxide 30 Anion Gap 11 BUN 11 Creatinine 0.84 Est GFR ( Amer) > 60 Est GFR (Non-Af Amer) > 60 Glucose 92 Calcium 9.2 Impressions: Head CT 03/06/18 12:08 IMPRESSION: NORMAL BRAIN CT WITHOUT CONTRAST. EVIDENCE OF ACUTE STROKE: NO. Chest X-Ray 03/10/18 00:00 IMPRESSION: NO ACUTE RADIOGRAPHIC FINDING IN THE CHEST. Assessment & Plan - Diagnosis (1) Acute bacterial meningitis Is this a current diagnosis for this admission?: Yes Plan: Patient is clinically improving Is hemodynamically stable He is oriented but still complains of headaches Extensive history of heavy substance and alcohol abuse His CSF cultures are negative up to date Continue ceftriaxone and vancomycin. Stopped dexamethasone and ampicillin yesterday Continue thiamine and folic acid supplements and scheduled Ativan High risk of alcohol withdrawal symptoms He may be withdrawing from substance abuse We contacted ID service for consult yesterday, waiting for callback (2) Acute encephalopathy Is this a current diagnosis for this admission?: Yes Plan: Resolved (3) Polysubstance abuse Is this a current diagnosis for this admission?: Yes (4) Positive culture finding Is this a current diagnosis for this admission?: Yes
--- NOTE | 2018-03-10 14:02 | PSYCHOLOGICAL NOTE ---
Psych Note - Psych Note Psych Note: Reason for Consult: Altered Mental Status 22-year-old male presents to the emergency department with altered mental status. patient was seen yesterday after he wsa kicked off a plan for unruly behavior. Patient reportedly has a history of substance abuse and while visiting friends in [place] was doing LSD and Ecstasy, along with other drugs. Patient calmed and was able to go home with his uncle, however became altered again. Family deny knowledge of the patient using drugs again and are concern he has not returned to baseline. Patient was admitted for medical concerns. Patient is observed putting his finger down his throat to induce vomiting. Attempting to walk around unclosed. Attempted to walk into another patient's room and laid down in a random stretcher in the hallway. Medication recommendations per [facility]'s contracted psychiatrist Dr. Mary Lou SALAZAR are as follows 1. Continue Haldol 2. Add Cogentin 1 mg daily 3. It is recommended prescribing physician avoid Ativan as it is an activating agent while he will sedate can disinhibit the patient once awake. Polysubstance abuse per family Impression/plan: The patient reportedly has used multiple drugs to include "candy flipping" (mixing LSD and ecstasy). Patient's family confirm the patient has a history of substance abuse. At this time, it appears the patient is experiencing prolonged altered mental status from his recent drug use or medical condition. At this point patient will be cleared from psychiatric services until his medical issues have been resolved since his altered mental status appears to be directly related to metal status. If there is any new concerns that arise please reconsult. Dr. Arriola was consulted and the care and management this patient; attending physician is agreement with recommendations and disposition.
--- NOTE | 2018-03-10 15:51 | Progress Note ---
Provider Note Provider Note: ID Consult Note Asked to review patient's chart. Pt not seen or examined. Attempted to reach Dr. Mcallister via telephone unsuccessfully to discuss case. Based on chart review , pt presented to the ED on 03/05/18 with altered mental status - "unruly behavior... got into fights with neighbors. Is acting very bizarre." Pt has hx of ilicit drug use with LSD and ecstasy. His exam was not remarkable except for psychomotor agitation (up around the room pacing) and tangential speech. No meningeal signs were noted or fever. LP was attempted in the ED but reported to be quite difficult due to patient movement and only 1 cc of bloody fluid was removed and sent for CSF culture. This was read as showing GPCs in pairs on Gram stain but with few WBCs and no growth on CSF culture. Not enough fluid was able to be sent for cell count, protein and glucose. Blood cultures have been negative. The patient was treated empirically with dexamethasone, ampicillin, Rocephin and vancomycin. At this point, dexamethasone and ampicillin has been discontinued. Pt is reported to be much more oriented and awake now. Impression/Recommendations It is entirely possible that the patient does not have meningitis considering the lack of fever and lack of meningeal signs documented during his hospitalization, but it is also difficult to completely rule out bacterial meningitis with the information presented - no CSF protein, cell count, and glucose analysis and Gram stain of fluid obtained at lumbar puncture showing Gram positive cocci in pairs, which could be consistent with pneumococcus. If the patient will consent to another LP, repeating CSF analysis could be helpful if it is entirely normal. For example, with bacterial meningitis, cell counts are typically in the several hundreds if not over a thousand, and after less than a week of treatment might fall to 90% or so of pretreatment levels but would be unlikely to reach a mere 0-5 WBCs in the CSF. Otherwise, without additional information, whether to complete current therapy ( finish the remainder of 10 days treatment) or to discontinue vancomycin and Rocephin treatment before that point is a matter of clinical judgment. Ryan Segura MD [facility] Infectious Diseases pager [phone]
[2018-03-10] MEDS: THIAMINE HCL 100 MG, FOLIC ACID 1 MG in NORMAL SALINE 250 ML IV SCH (20:14)
[2018-03-10] MEDS: ONDANSETRON 4 MG TAB.RAPDIS PO PRN (23:35)
[2018-03-11] MEDS: VANCOMYCIN HCL 750 MG in DEXTROSE 5%-WATER 250 ML IV SCH ×2 (01:41→06:16)
[2018-03-11] MEDS: CEFTRIAXONE 2 GM/D5W RTU 2 GM/50 ML RTUPB IV SCH (05:28)
[2018-03-11] MEDS: ONDANSETRON 4 MG TAB.RAPDIS PO PRN ×2 (07:07→11:01)
[2018-03-11] MEDS ORDERED: HALOPERIDOL LACTATE INJ 5 MG/1 ML VIAL IV PRN (09:06)
[2018-03-11] MEDS: ENOXAPARIN SODIUM INJ 40 MG/0.4 ML DISP.SYRIN SUBCUT SCH (11:06)
[2018-03-11] MEDS: ACETAMINOPHEN 325 MG TABLET PO PRN (14:13)
[2018-03-11 14:36] VITALS: BP 110/61
--- NOTE | 2018-03-11 18:22 | PDOC DISCHARGE SUMMARY ---
General - Admit/Disc Date/PCP Admission Date/Primary Care Provider: 03/05/18 16:48 Discharge Date: 03/11/18 - Discharge Diagnosis (1) Acute encephalopathy Is this a current diagnosis for this admission?: Yes Summary: Resolved and secondary to poly-substance abuse. Will dc with 1 week of qhs Cogentin. The patient is at baseline per family. The patient underwent LP which was negative for bacterial meningitis, although he did complete 7 days of IV antibiotics. All cultures have had no growth. The patient is not to drive until cleared by PCP. (2) Full code status Is this a current diagnosis for this admission?: Yes (3) Polysubstance abuse Is this a current diagnosis for this admission?: Yes Summary: I have stressed to the patient that he is very michelle that he ended up admitted for his psychosis and encephalopathy secondary to his polysubstance abuse. I have cautioned him to avoid such substances in the future as it may result in a less desireable outcome. (4) Psychosis Is this a current diagnosis for this admission?: Yes Summary: Secondary to polysubstance abuse. At baseline per family. I will continue Cogentin for 1 week. (5) Substance abuse Is this a current diagnosis for this admission?: Yes Summary: MDMA and LSD. I have cautioned the patient to avoid these substances in the future. - Additional Information Discharge Diet: Regular Discharge Activity: Other Prescriptions: Benztropine Mesylate [Cogentin 1 mg Tablet] 1 mg PO QHS #7 tablet Home Medications: Benztropine Mesylate [Cogentin 1 mg Tablet] 1 mg PO QHS #7 tablet 03/11/18 History of Present Illness History of Present Illness: SHARI HAQUE is a 22 year old male who was initially seen in the emergency room on 03/04/2018. He was brought to the emergency room with altered mental status. The patient was seen in the emergency room here yesterday after being pulled off a flight in [place] for unruly behavior. He had been in [place] and had been using quite a bit of drugs. He had been "candy flipping" which is using a combination of ecstasy and LSD. Apparently he had a drug problem when he was previously living in [place]. He was acting very aggressive and erratic yesterday. He was sedated in the emergency room and calmed down and was eventually discharged home to spend the night with his uncle. Unfortunately last night he ran away, got into fights with neighbors and has been acting very bizarre. He was brought back to the emergency room. Initial labs were unremarkable. He had a CT scan of the brain which was unremarkable. The emergency room physician was concerned that possibly he had an encephalitis and performed a lumbar puncture. Unfortunately this was a bit of traumatic tap and it was was quite a bit of blood in the sample. He did use aseptic technique and thought that he got a good sample. The patient has continued to be acting fairly bizarre here in the emergency room. The lab has called and said that there were now gram-positive cocci in pairs growing in his CSF fluid. He was referred to the hospitalist service for admission. Hospital Course Hospital Course: The patient was admitted. He underwent an LP out of concern for possible bacterial meningitis. Cultures were negative. The patietn completed 1 week of IV antibiotics. He has been evaluated by mental health. Their recommendation was to avoid anxiolytics and to prescribe cogentin 1 mg daily for the patient. The patient's family states that he is at baseline today. He will be discharged to home with one week of cogentin. He will not be driving until he is cleared by his PCP. Physical Exam Vital Signs: Temp Pulse Resp BP Pulse Ox 98.1 F 77 16 110/61 100 03/11/18 14:32 03/11/18 14:32 03/11/18 14:32 03/11/18 14:32 03/11/18 14:32 Intake & Output 03/10/18 03/11/18 03/12/18 06:59 06:59 06:59 Intake Total 1796.2 1773.2 222 Balance 1796.2 1773.2 222 Weight 63.8 kg 61 kg General appearance: PRESENT: no acute distress, cooperative Head exam: PRESENT: atraumatic, normocephalic Respiratory exam: PRESENT: other - No increased work of breathing. No wheezes, rales, or rhonchi. No tactile fremitus. Cardiovascular exam: PRESENT: RRR. ABSENT: diastolic murmur, gallop, systolic murmur Pulses: PRESENT: normal dorsalis pedis pul GI/Abdominal exam: PRESENT: normal bowel sounds, soft. ABSENT: distended, hernia, mass, organolmegaly, tenderness Extremities exam: PRESENT: full ROM. ABSENT: joint swelling, pedal edema, tenderness Musculoskeletal exam: ABSENT: deformity, dislocation, normal inspection Neurological exam: PRESENT: alert, awake, oriented to person, oriented to place , oriented to situation, CN II-XII grossly intact. ABSENT: oriented to time Psychiatric exam: PRESENT: flat affect Skin exam: PRESENT: dry, intact, warm Results Laboratory Results: 03/10/18 09:30 03/10/18 09:30 03/05/18 20:50 Blood Blood Culture - Final NO GROWTH IN 5 DAYS 03/05/18 18:36 Blood Blood Culture - Final NO GROWTH IN 5 DAYS 03/10/18 03/10/18 09:30 09:30 WBC 9.1 RBC 4.68 Hgb 14.7 Hct 41.9 MCV 90 Seg Neutrophils % 74.2 Sodium 141.5 Potassium 3.2 L Chloride 101 Carbon Dioxide 30 Creatinine 0.84 Glucose 92 Calcium 9.2 03/05/18 20:50 Blood Culture - Final Blood NO GROWTH IN 5 DAYS 03/05/18 18:36 Blood Culture - Final Blood NO GROWTH IN 5 DAYS 03/05/18 14:00 Gram Stain - Final Cerebral Spinal Fluid - Tube 1 (Csf) CSF Culture - Final NO GROWTH 3 DAYS Impressions: Head CT 03/06/18 12:08 IMPRESSION: NORMAL BRAIN CT WITHOUT CONTRAST. EVIDENCE OF ACUTE STROKE: NO. Chest X-Ray 03/10/18 00:00 IMPRESSION: NO ACUTE RADIOGRAPHIC FINDING IN THE CHEST. Qualifiers - * PATIENT BEING DISCHARGED WITH ANY OF THE FOLLOWING DIAGNOSIS: No Plan Discharge Plan: The patient will be discharged to home with his family. Time Spent: Greater than 30 Minutes
[2018-03-11] MEDS ORDERED: BENZTROPINE MESYLATE 1 MG TABLET PO SCH (22:00)
== END 2018-03-11 15:36 | disposition home or self-care (01) | DRG 92 ==
LOC: ER 07:24 → EH 16:48 → UNDOADMIN 16:48 → 3W 03-06 07:54
PROVIDERS: ADMIT Physician Assistant; ATTEND Physician Assistant
PROC: 009U3ZX Drainage of Spinal Canal, Percutaneous Approach, Diagnostic (ICD-10-PCS; principal; 2018-03-05)
DX: G92 Toxic encephalopathy (principal); F23 Brief psychotic disorder; F19.159 Other psychoactive substance abuse with psychoactive substance-induced psychotic disorder, unspecified; F16.10 Hallucinogen abuse, uncomplicated; F41.9 Anxiety disorder, unspecified
CPT/HCPCS: 36415; 70450; 71046; 80048; 80053; 80202; 80307; 81001; 83735; 84100; 85025; 85652; 86141; 87040; 87070; 87205; 93005; 93010; 96374; 96375; 99285; J0290; J0692; J0696; J1100; J1630; J1650; J1885; J2060; J2270; J2405; J3370; J3411; J3490; J7030; J7050; J7060; S0119